=== PATIENT | female | born 1985 | race Caucasian/White ===

== ENCOUNTER 2022-04-08 15:23 | Emergency (ER) | payer OTHER, SELFPAY ==
[2022-04-08 15:38] VITALS: BP 133/71; PULSE 86; RESP 16; TEMP 36.7; O2SAT 100
--- NOTE | 2022-04-08 16:36 | ED.SKABFB ---
HPI - Skin/Abscess/Foreign Bdy General Chief complaint: Skin/Abscess/Foreign Body Stated complaint: Rash and pain right side Time Seen by Provider: 04/08/22 16:00 Source: patient, RN notes reviewed and old records reviewed Mode of arrival: ambulatory Limitations: no limitations History of Present Illness HPI narrative: 36 year old female who presents to [facility] with complaints of having burning type of pain to her right breast and to back which started on Wednesday with rash appearing on Wednesday blistery lesions. Patient reports that rash is urning and itchy, has not noted any drainage from lesions which are blistery type in appearance Patient reports past history of shingles. MD complaint: rash Onset (ago): day(s) (3 days pain, rash day 2) Related Data Allergies Allergy/AdvReac Type Severity Reaction Status Date / Time No Known Allergies Allergy Unverified 05/28/15 16:24 Review of Systems Review of Systems: CONSTITUTIONAL: Denies fever, chills, or sweats. CARDIOVASCULAR: Denies chest pain, palpitations, or edema. RESPIRATORY: Denies cough or dyspnea. SKIN: Reports blistery lesion to right side of breast going to the right back with burning pain and itching MUSCULOSKELETAL: Denies joint pain or myalgia. NEUROLOGIC: Denies headache, numbness, or weakness. All systems reviewed & are unremarkable except as noted in HPI and below PMFSH Past Medical History Medical History (Updated 04/11/22 @ 17:26 by Carol Lemus NP) Shingles Surgical History Surgical History (Updated 04/11/22 @ 17:24 by Carol Lemus NP) H/O tubal ligation Social History Social History (Updated 04/11/22 @ 17:26 by Carol Lemus NP) Smoking status: Never smoker Alcohol intake: never Substance use: never Living arrangements: with family Gender identity (if verbalized by the patient): Female Comments At time of signature, agree with nursing past medical, surgical, social and family history. There is no relevant family history pertinent to the presenting complaint Exam Narrative: GENERAL: Well-appearing, well-nourished, and in no acute distress. HEAD: Normocephalic, atraumatic. EYES: PERRLA, conjunctivae clear, and EOMI. ENT: Mucous membranes moist. Oropharynx without edema, erythema or lesions. NECK: Supple. No lymphadenopathy CHEST: Clear to auscultation. No respiratory distress. HEART: Regular rate and rhythm. SKIN: Warm, dry.? Patches diffuse red blistery lesions along right breast with pain. NEURO:? Alert and oriented x3. PSYCH: Normal mood and affect Course Course Emergency Course: Patient is aware of diagnosis, understands and agrees to treatment plan.? Anticipatory guidance given.? Patient agrees to follow-up as directed and is aware of reasons to seek care at the emergency department. Portions of this record may have been created with voice recognition software Level of Care: Express Care Visit Vital Signs Vital signs: Vital Signs Temperature 36.7 C 04/08/22 15:38 Pulse Rate 86 04/08/22 15:38 Respiratory Rate 16 04/08/22 15:38 Blood Pressure 133/71 04/08/22 15:38 Pulse Oximetry 100 04/08/22 15:38 Oxygen Delivery Room Air 04/08/22 15:38 Temperature 36.7 C 04/08/22 15:38 Pulse Rate 86 04/08/22 15:38 Respiratory Rate 16 04/08/22 15:38 Blood Pressure 133/71 04/08/22 15:38 Pulse Oximetry 100 04/08/22 15:38 Oxygen Delivery Room Air 04/08/22 15:38 Reviewed MDM - Skin/Abscess/Foreign Bdy MDM Narrative Medical decision making narrative: Does not appear at this time to be erythema multiforme, bullous, SJS, TEN; no evidence at this time to suggest RMSF, endocarditis or Lyme disease; patient looks well, nontoxic and is tolerating oral intake; no neurologic signs or symptoms; no headache, photophobia or neck pain; afebrile; appropriate for initial outpatient treatment; discussed the importance of follow-up, patient agrees; question, viral exa
== END 2022-04-08 16:53 | disposition home or self-care (01) ==
PROVIDERS: Emergency Provider Registered Nurse
DX: B02.9 Zoster without complications (principal)
CPT/HCPCS: 99203; G0463